=== PATIENT | female | born 1950 ===

== ENCOUNTER 2018-01-02 12:52 | Emergency (ER) | payer MEDICARE, OTHER ==
[2018-01-02 12:59] VITALS: TEMP 98
[2018-01-02 14:38] LABS: BASO # 0.1 K/uL (0.0-0.2); BASO % 0.9 % (0.0-2.0); EOS # 0.1 K/uL (0.0-0.7); EOS % 1.4 % (0.0-4.0); LYMPH # 1.8 K/uL (1.0-4.3); LYMPH % 19.4 % (20.0-40.0); MEAN CELL VOLUME 85.9 fl (81.0-99.0); MEAN CORPUSCULAR HEMOGLOBIN 28.9 pg (27.0-31.0); MEAN CORPUSCULAR HGB CONC 33.7 g/dL (33.0-37.0); MEAN PLATELET VOLUME 8.6 fl (7.2-11.7); MONO # 0.7 K/uL (0.0-0.8); MONO % 7.3 % (0.0-10.0); NEUT # 6.5 K/uL (1.8-7.0); RBC 5.2 Mil/uL (3.80-5.20); RED CELL DISTRIBUTION WIDTH 14.7 % (11.5-14.5); WHITE BLOOD COUNT 9.2 K/uL (4.8-10.8)
[2018-01-02 14:40] LABS: ALB/GLOB RATIO 1.4 (1.0-2.1); ALBUMIN 4.9 g/dL (3.5-5.0); ALT/SGPT 53 U/L (9-52); AST/SGOT 50 U/L (14-36); BLOOD UREA NITROGEN 15 mg/dl (7-17); GFR AFRICAN-AMERICAN > 60; GFR NON-AFRICAN AMERICAN > 60
--- NOTE | 2018-01-02 14:40 | ED PDOC ---
HPI: Hypertension/Hypotension Time Seen by Provider: 01/02/18 13:22 Chief Complaint (Nursing): High Blood Pressure Chief Complaint (Provider): High Blood Pressure History Per: Patient History/Exam Limitations: no limitations Onset/Duration Of Symptoms: Hrs Quality Of Symptoms: Asymptomatic Additional Complaint(s): Patient is a 67 y/o female with history of HTN for past x7 years who presents to ED complaining of high BP. She is taking Carvedilol 12.5 mg for management. She was taking Losartan and Norvasc prior but discontinued at the end of last year because her blood pressure was under control so her doctor took her off both. She came to her doctor for a routine check up and was found to have an elevated blood pressure of 216/96, she was given 0.2 mg of Clonidine and advised to come to the ED for further evaluation. Patient states she feels fine otherwise and denies fever, chills, chest pain, SOB, headache, dizziness, any focal numbness or weakness. PMD: Luz Patrick Past Medical History Reviewed: Historical Data, Nursing Documentation, Vital Signs Vital Signs: Last Vital Signs Temp 98 F 01/02/18 12:56 Pulse 73 01/02/18 12:56 Resp 18 01/02/18 12:56 BP 172/97 H 01/02/18 12:56 Pulse Ox 97 01/02/18 12:56 - Medical History PMH: Arthritis, HTN - Surgical History Surgical History: No Surg Hx - Family History Family History: States: Unknown Family Hx - Social History Current smoker - smoking cessation education provided: No Alcohol: None Drugs: Denies - Home Medications Home Medications: Ambulatory Orders Medication Instructions Recorded Allopurinol [Zyloprim] 1 tab PO DAILY 01/02/18 Carvedilol [Coreg] 1 tab PO BID 01/02/18 Lovastatin [Lovastatin] 1 tab PO HS 01/02/18 - Allergies Allergies/Adverse Reactions: Allergies Allergy/AdvReac Type Severity Reaction Status Date / Time No Known Allergies Allergy Verified 01/02/18 12:55 Review of Systems ROS Statement: Except As Marked, All Systems Reviewed And Found Negative Constitutional: Negative for: Fever, Chills, Weakness Cardiovascular: Negative for: Chest Pain Respiratory: Negative for: Shortness of Breath Neurological: Negative for: Weakness, Numbness (focal), Headache, Dizziness Physical Exam - Reviewed Nursing Documentation Reviewed: Yes Vital Signs Reviewed: Yes - Physical Exam Comments: GENERAL APPEARANCE: Patient is awake, alert, oriented x 3, in no acute distress. VS : BP 172/97 P 73 O2sat 97%RA. SKIN: Warm, dry; (-) cyanosis. EYES: (-) conjunctival pallor. ENMT: Mucous membranes moist. NECK: (-) tenderness, (-) stiffness, (-) lymphadenopathy, (-) JVD. CHEST AND RESPIRATORY: (-) rash, (-) chest wall tenderness. Lungs: (-) rales , (-) rhonchi, (-) wheezes, (-) rub; breath sounds equal bilaterally. HEART AND CARDIOVASCULAR: (-) irregularity; (-) murmur, (-) gallop, (-) rub. ABDOMEN AND GI: Soft; (-) distention, (-) tenderness, (-) palpable pulsatile mass. EXTREMITIES: (-) deformity; (-) edema, (-) calf tenderness. (+) distal pulses. NEURO AND PSYCH: Mental status as above. Cranial nerves grossly intact; strength symmetric. - Laboratory Results Result Diagrams: 01/02/18 14:25 01/02/18 14:25 - ECG O2 Sat by Pulse Oximetry: 97 (RA) Pulse Ox Interpretation: Normal Medical Decision Making Medical Decision Making: Time: 13:26 Initial Impression: High blood pressure Initial Plan: --EKG --CMP --Troponin I --EDNURTX --CBC with Differential --CXR one view --Urinalysis Time: 13:55 EKG : NSR, 66 bpm, RBBB, LAD, no acute ST changes, as read by CM CXR : NAD, as read by PA On re-evaluation, patient reports no headache, dizziness, SOB or CP. VS BP 147/ 72 P 66. On exam, patient remains AAOx3, in no acute distress. Lab results reviewed : trop (-), LFTs mildly elevated, K 5.3. Patient given kayexalate PO. Diagnostic results d/w the patient in great detail. Diagnosis of HTN d/w the patient. Patient states that her pmd has sent Rx of losartan and norvasc to her pharmacy and was advised to start taking tomorrow 1/2 dose of each tablet. Case d/w [employer]AGE TOOL[employer]TER Luz Patrick, pt's pmd at [facility] and agrees with current plan for outpatient follow up, will follow up with the patient in her office next week for re-evaluation. Based on history, exam and diagnostic results, plan will be for outpatient follow up. Patient states that she feels comfortable going home. Patient instructed to follow-up with pmd in 1-2 days without fail. Advised to take medication as prescribed by her SWAGE TOOLSETTER. Return to the emergency room at any time for any new or worsening symptoms. Patient states she fully agrees with and understands discharge instructions. States that she agrees with the plan and disposition. Verbalized and repeated discharge instructions and plan. I have given the patient opportunity to ask any additional questions. Scribe Attestation: Documented Brandyn Smith & Cristian Dow acting as a scribe for Susannah Carrillo PA-C. MD Scribe Attestation: All medical record entries made by the Scribe were at my direction and personally dictated by me. I have reviewed the chart and agree that the record accurately reflects my personal performance of the history, physical exam, medical decision making, and the department course for this patient. I have also personally directed, reviewed, and agree with the discharge instructions and disposition. Disposition - Clinical Impression Clinical Impression: Hypertension - Patient ED Disposition Is Patient to be Admitted: No Counseled Patient/Family Regarding: Studies Performed, Diagnosis, Need For Followup - Disposition Disposition: Routine/Home Disposition Time: 16:00 Condition: IMPROVED Additional Instructions: Thank you for letting us take care of you today. You were treated for HTN. The emergency medical care you received today was directed at your acute symptoms. If you were prescribed any medication, please fill it and take as directed by your pmd. It may take several days for your symptoms to resolve. Return to the Emergency Department if your symptoms worsen, do not improve, or if you have any other problems. Please contact your doctor in 2 days for re-evaluation and follow up. Bring any paperwork you were given at discharge with you along with any medications you are taking to your follow up visit. Our treatment cannot replace ongoing medical care by a primary care provider (PCP) outside of the emergency department. Thank you for allowing the [facility] team to be part of your care today. Instructions: High Blood Pressure in Adults, DASH Diet, Controlling Your Blood Pressure Through Lifestyle Forms: [employer] (Telugu) - PA / SWAGE TOOLSETTER / Resident Statement MD/DO has reviewed & agrees with the documentation as recorded.
--- NOTE | 2018-01-02 14:41 | RAD ---
PROCEDURE: CHEST RADIOGRAPH, 1 VIEW HISTORY: High blood pressure COMPARISON: None available. FINDINGS: LUNGS: Poor inspiration with low lung volumes, crowded bronchovascular markings and mild bibasilar atelectasis. PLEURA: No pneumothorax or pleural fluid seen. CARDIOVASCULAR: Heart appears upper limits of normal/ borderline enlarged which may in part be secondary to low lung volumes. OSSEOUS STRUCTURES: No significant abnormalities. VISUALIZED UPPER ABDOMEN: Normal. OTHER FINDINGS: None. IMPRESSION: Poor inspiration with low lung volumes, crowded bronchovascular markings and mild bibasilar atelectasis.
[2018-01-02 15:55] VITALS: BP 147/72; PULSE 66; RESP 17
[2018-01-02] MEDS ORDERED: Sod Polystyrene Sulf 15 gm/60 ml Susp PO ONE (16:04)
[2018-01-02 16:08] VITALS: O2SAT 97
[2018-01-02] MEDS ORDERED: Sod Polystyrene Sulf 15 gm/60 ml Susp ONE (16:24)
[2018-01-02 17:49] LABS: SQUAMOUS EPITHIAL < 1 /hpf (0-5); URINE BILIRUBIN NEGATIVE (NEGATIVE); URINE BLOOD SMALL (NEGATIVE); URINE CLARITY SLIGHTY-CLOUDY (Clear); URINE COLOR YELLOW (YELLOW); URINE GLUCOSE (UA) NEG (Normal); URINE LEUKOCYTE ESTERASE LARGE Leu/uL (Negative); URINE PROTEIN NEGATIVE (NEGATIVE); URINE UROBILINOGEN 0.2-1.0 mg/dL (0.2-1.0)
--- NOTE | 2018-01-03 10:24 | CARD ---
APPROVED REPORT EKG Measurement Heart [id number] <Conclusion> Normal sinus rhythm Left axis deviation Right bundle branch block Abnormal ECG
== END 2018-01-02 16:38 | disposition home or self-care (01) ==
LOC: H.ER 12:52
DX: I10 Essential (primary) hypertension (principal); R94.5 Abnormal results of liver function studies